=== PATIENT | male | born 1980 | race Caucasian/White ===

== ENCOUNTER 2018-01-13 13:23 | Emergency (ER) | payer OTHER ==
--- NOTE | 2018-01-13 14:01 | ED ---
General Adult HPI - General Chief complaint: Urogenital Stated complaint: poss kidney stones Time Seen by Provider: 01/13/18 13:30 Source: patient, RN notes reviewed Mode of arrival: ambulatory Limitations: no limitations - History of Present Illness Initial comments: This is a 38-year-old male who presents emergency Department stating he had some pain in his penis approximately an hour prior to arrival. Patient states she's had kidney stones in the past and recently has been having some mild flank pain he was just ignoring it. Patient came in today to be seen for this but he went into the bathroom to give us urine and he believes a stone came out when he urinated. Patient states currently he is pain-free. Patient has no abdominal pain patient has no flank pain. - Related Data Home Medications Medication Instructions Recorded Confirmed Mirtazapine [Remeron] 30 mg PO HS 01/13/18 01/13/18 Propranolol [Inderal] 10 mg PO TID 01/13/18 01/13/18 Venlafaxine HCl [Effexor XR] 150 mg PO DAILY 01/13/18 01/13/18 hydrOXYzine PAMOATE [Vistaril] 100 mg PO BID PRN 01/13/18 01/13/18 Allergies Allergy/AdvReac Type Severity Reaction Status Date / Time No Known Allergies Allergy Verified 01/13/18 14:12 Review of Systems ROS Statement: Those systems with pertinent positive or pertinent negative responses have been documented in the HPI. ROS Other: All systems not noted in ROS Statement are negative. Past Medical History Past Medical History: No Reported History Additional Past Medical History / Comment(s): kidney stones History of Any Multi-Drug Resistant Organisms: None Reported Past Surgical History: Orthopedic Surgery Additional Past Surgical History / Comment(s): Left shoulder surgery kidney stones removal Past Anesthesia/Blood Transfusion Reactions: No Reported Reaction Past Psychological History: Anxiety, Depression, PTSD Smoking Status: Current every day smoker Past Alcohol Use History: Occasional Past Drug Use History: None Reported - Past Family History Mother Family Medical History: Hyperlipidemia Sister(s) Additional Family Medical History / Comment(s): Sister has mental health history General Exam - General Exam Comments Initial Comments: GENERAL Patient is well-developed and well-nourished. Patient is in no distress. EYES Patient's pupils are equal and round. Extraocular motion is intact SKIN Unremarkable ABDOMEN Nontender NEURO The patient is alert and oriented 3 PYSCH Patient has normal interpersonal interactions. MUSCULOSKELETAL All 4 times and full range of motion Limitations: no limitations Course Vital Signs 01/13/18 13:29 Temperature 97.8 F Pulse Rate 93 Respiratory 18 Rate Blood Pressure 137/90 O2 Sat by Pulse 99 Oximetry Medical Decision Making - Medical Decision Making Patient was asymptomatic so disease state. Patient had a kidney stone in his urinal. - Lab Data Lab Results 01/13/18 Range/Units 13:35 Urine Color Yellow Urine Appearance Turbid (Clear) Urine pH 7.0 (5.0-8.0) Ur Specific [place] 1.013 (1.001-1.035) Urine Protein Trace H (Negative) Urine Glucose (UA) Negative (Negative) Urine Ketones Negative (Negative) Urine Blood Trace H (Negative) Urine Nitrite Negative (Negative) Urine Bilirubin Negative (Negative) Urine Urobilinogen 2.0 (<2.0) mg/dL Ur Leukocyte Esterase Small H (Negative) Urine WBC 1 (0-5) /hpf Amorphous Sediment Occasional H (None) /hpf Urine Mucus Occasional H (None) /hpf Disposition Clinical Impression: Kidney stone Disposition: HOME SELF-CARE Condition: Good Instructions: Kidney Stones (ED) Referrals: None,Stated [Primary Care Provider] - 1-2 days Time of Disposition: 15:12
[2018-01-13 14:32] LABS: Amorphous Sediment,Urine Occasional /hpf; Appearance,Urine Turbid (Clear); Bilirubin,Urine Negative (Negative); Blood,Urine Trace (Negative); Color,Urine Yellow; Glucose,Urine (UA) Negative (Negative); Ketones,Urine Negative (Negative); Leukocyte Esterase,Urine Small (Negative); Mucus,Urine Occasional /hpf; Nitrite,Urine Negative (Negative); Protein,Urine Trace (Negative); Specific Gravity,Urine 1.013 (1.001-1.035); WBC,Urine 1 /hpf (0-5)
[2018-01-13 15:20] VITALS: BP 130/80; PULSE 80; RESP 98; TEMP 98
== END 2018-01-13 15:19 | disposition home or self-care (01) ==
LOC: EC 13:23
DX: N20.0 Calculus of kidney (principal); F41.9 Anxiety disorder, unspecified; F32.9 Major depressive disorder, single episode, unspecified; F43.10 Post-traumatic stress disorder, unspecified; F17.200 Nicotine dependence, unspecified, uncomplicated; Z79.899 Other long term (current) drug therapy
CPT/HCPCS: 81001; 99283

== ENCOUNTER 2018-03-15 17:00 | Emergency (ER) | payer OTHER ==
[2018-03-15 17:11] VITALS: BP 119/77; PULSE 96; RESP 18; TEMP 98.7
[2018-03-15] MEDS ORDERED: KETOROLAC 30 MG/ML 1 ML VIAL IM STA (17:26)
[2018-03-15] MEDS ORDERED: ORPHENADRINE 30 MG/ML 2 ML VIAL IM STA (17:26)
--- NOTE | 2018-03-15 17:36 | ED ---
Back Pain HPI - General Chief Complaint: Back Pain/Injury Stated Complaint: back pain Time Seen by Provider: 03/15/18 17:20 Source: patient, RN notes reviewed Limitations: no limitations - History of Present Illness Initial Comments: This is a 38-year-old male who presents to the emergency department with chief complaint of low back pain. Patient states that within a three-hour time frame while at work today his back locked up on him 3 times. He describes the pain as a cramping. He currently rates his pain as 6/10. He states that the pain is localized to his low back. He denies any specific injuries or trauma. Denies any recent falls. He denies saddle paresthesias or loss of bladder or bowel function. He denies any numbness or tingling or radiation of pain down the legs. Denies urinary symptoms such as dysuria or hematuria. Denies fevers or chills. Denies IV drug use. 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 - Related Data Home Medications Medication Instructions Recorded Confirmed Propranolol [Inderal] 10 mg PO TID 01/13/18 01/13/18 Venlafaxine HCl [Effexor XR] 150 mg PO DAILY 01/13/18 01/13/18 Previous Rx's Medication Instructions Recorded Cyclobenzaprine [Flexeril] 10 mg PO TID #12 tab 03/15/18 Ibuprofen 600 mg PO Q6HR #20 tablet 03/15/18 Allergies Allergy/AdvReac Type Severity Reaction Status Date / Time No Known Allergies Allergy Verified 03/15/18 17:44 Review of Systems ROS Statement: Those systems with pertinent positive or pertinent negative responses have been documented in the HPI. ROS Other: All systems not noted in ROS Statement are negative. Past Medical History Past Medical History: No Reported History Additional Past Medical History / Comment(s): kidney stones History of Any Multi-Drug Resistant Organisms: None Reported Past Surgical History: Orthopedic Surgery Additional Past Surgical History / Comment(s): Left shoulder surgery kidney stones removal Past Anesthesia/Blood Transfusion Reactions: No Reported Reaction Past Psychological History: Anxiety, Depression, PTSD Smoking Status: Current every day smoker Past Alcohol Use History: Occasional Past Drug Use History: None Reported - Past Family History Mother Family Medical History: Hyperlipidemia Sister(s) Additional Family Medical History / Comment(s): Sister has mental health history General Exam - General Exam Comments Initial Comments: General: Awake and alert, well-developed; in no apparent distress. HEENT: Head atraumatic, normocephalic. Pupils are equal, round and reactive to light. Extraocular movements intact. Oropharynx moist without erythema or exudate. Neck: Supple. Normal ROM. No tenderness. Cardiovascular: Regular rate and rhythm. No murmurs, rubs or gallops. Chest symmetrical. Respiratory: Lungs clear to auscultation bilaterally. No wheezes, rales or rhonchi. Normal respiratory effort with no use of accessory muscles. Musculoskeletal: Normal ROM, no tenderness bilateral upper and lower extremities. Ambulating normally. Tenderness on palpation of lumbar paraspinal muscles. No vertebral or SI joint tenderness. Sensation is intact. Pedal and posterior tibial pulses are 2+ equal and palpable bilaterally. Skin: [place], warm and dry without rashes or lesions. Neurological: Alert and oriented x3. CN II-XII grossly intact. Speech is fluent and answers are appropriate. No focal neuro deficits. Psychiatric: Normal mood and affect. No overt signs of depression or anxiety noted. Limitations: no limitations Course Vital Signs 03/15/18 17:08 Temperature 98.7 F Pulse Rate 96 Respiratory 18 Rate Blood Pressure 119/77 O2 Sat by Pulse 99 Oximetry Medical Decision Making - Medical Decision Making This is a 38-year-old male who presents to the emergency department with chief complaint of low back pain. This began yesterday. Patient denies any specific injury or trauma but does state that he performs rotating motions and is constantly bending over and lifting objects at work. There is tenderness along the paraspinal muscles in the lumbar region. Patient denies saddle paresthesias , loss of bladder or bowel function, numbness or tingling or radiation of pain down the legs. Denies urinary symptoms such as dysuria or hematuria. Denies fevers or chills. Patient given Toradol and Norflex while in the emergency department. Likely suffering from a low back strain. Recommended anti- inflammatories and muscle relaxers as well as low back stretching exercises. Patient is in no acute distress and will be discharged home at this time. All questions answered. Disposition Clinical Impression: Strain of lumbar region Disposition: HOME SELF-CARE Condition: Good Instructions: Lower Back Exercises (ED), Low Back Strain (ED), Acute Low Back Pain (ED) Additional Instructions: Please take medications as prescribed. Please follow up with primary care provider within 1-2 days. Return to emergency department if symptoms should worsen or any concerns arise. Prescriptions: Cyclobenzaprine [Flexeril] 10 mg PO TID #12 tab Ibuprofen 600 mg PO Q6HR #20 tablet Is patient prescribed a controlled substance at d/c from ED?: No Referrals: None,Stated [Primary Care Provider] - 1-2 days Time of Disposition: 17:41
== END 2018-03-15 17:44 | disposition home or self-care (01) ==
LOC: EC 17:00
DX: S39.012A Strain of muscle, fascia and tendon of lower back, initial encounter (principal); F32.9 Major depressive disorder, single episode, unspecified; F41.9 Anxiety disorder, unspecified; F43.10 Post-traumatic stress disorder, unspecified; F17.200 Nicotine dependence, unspecified, uncomplicated; Z79.899 Other long term (current) drug therapy; X50.9XXA Other and unspecified overexertion or strenuous movements or postures, initial encounter; Y99.0 Civilian activity done for income or pay
CPT/HCPCS: 99283; 96372 ×2; J2360; J1885

== ENCOUNTER 2018-05-03 06:32 | Emergency (ER) | payer OTHER ==
[2018-05-03 06:42] VITALS: TEMP 98.2
[2018-05-03] MEDS ORDERED: PANTOPRAZOLE 40 MG/10 ML VIAL IVP STA (07:27)
[2018-05-03] MEDS ORDERED: SODIUM CHLORIDE 0.9% 1,000 ML IV STA (07:27)
--- NOTE | 2018-05-03 07:32 | ED ---
GI Bleed HPI - General Chief complaint: GI Bleed Stated complaint: Bloody Stools Time Seen by Provider: 05/03/18 07:00 Source: patient, RN notes reviewed Mode of arrival: ambulatory Limitations: no limitations - History of Present Illness Initial comments: This is a 38-year-old male with a benign history states he was at work today when he wiped himself after having a bowel movement he didn't actually have a bowel movement when he had bright red blood when he wiped herself this happened twice. He came here for evaluation she's had some mild upper abdominal pain no fevers chills nausea vomiting sweats. No prior history of abdominal surgeries. No known history of a family of GI problems. No red or orange colored foods over the weekend. No other complaints or modifying factors at this time MD complaint: blood on toilet paper - Related Data Home Medications Medication Instructions Recorded Confirmed Propranolol [Inderal] 10 mg PO TID 01/13/18 03/15/18 Venlafaxine HCl [Effexor XR] 150 mg PO DAILY 01/13/18 03/15/18 Previous Rx's Medication Instructions Recorded Cyclobenzaprine [Flexeril] 10 mg PO TID #12 tab 03/15/18 Ibuprofen 600 mg PO Q6HR #20 tablet 03/15/18 Ciprofloxacin HCl [Cipro] 500 mg PO Q12HR #20 tablet 05/03/18 metroNIDAZOLE [Flagyl] 375 mg PO TID #30 cap 05/03/18 Allergies Allergy/AdvReac Type Severity Reaction Status Date / Time No Known Allergies Allergy Verified 05/03/18 06:42 Review of Systems ROS Statement: Those systems with pertinent positive or pertinent negative responses have been documented in the HPI. ROS Other: All systems not noted in ROS Statement are negative. Past Medical History Past Medical History: No Reported History Additional Past Medical History / Comment(s): kidney stones History of Any Multi-Drug Resistant Organisms: None Reported Past Surgical History: Orthopedic Surgery Additional Past Surgical History / Comment(s): Left shoulder surgery kidney stones removal Past Anesthesia/Blood Transfusion Reactions: No Reported Reaction Past Psychological History: Anxiety, Depression, PTSD Smoking Status: Current every day smoker Past Alcohol Use History: Occasional Past Drug Use History: None Reported - Past Family History Mother Family Medical History: Hyperlipidemia Sister(s) Additional Family Medical History / Comment(s): Sister has mental health history General Exam - General Exam Comments Initial Comments: This a well-developed well-nourished awake alert oriented 3 male Limitations: no limitations General appearance: alert, in no apparent distress Head exam: Present: atraumatic, normocephalic, normal inspection Eye exam: Present: normal appearance, PERRL, EOMI. Absent: scleral icterus, conjunctival injection, periorbital swelling ENT exam: Present: normal exam, mucous membranes moist Neck exam: Present: normal inspection. Absent: tenderness, meningismus, lymphadenopathy Respiratory exam: Present: normal lung sounds bilaterally. Absent: respiratory distress, wheezes, rales, rhonchi, stridor Cardiovascular Exam: Present: regular rate, normal rhythm, normal heart sounds. Absent: systolic murmur, diastolic murmur, rubs, gallop, clicks GI/Abdominal exam: Present: soft, tenderness (Mild epigastric and upper abdominal tenderness no guarding rebound masses or bruits), normal bowel sounds. Absent: distended, guarding, rebound, rigid, bruit, pulsatile mass, hernia Extremities exam: Present: normal inspection, full ROM, normal capillary refill. Absent: tenderness, pedal edema, joint swelling, calf tenderness Back exam: Present: normal inspection Neurological exam: Present: alert, oriented X3, CN II-XII intact Psychiatric exam: Present: normal affect, normal mood Skin exam: Present: warm, dry, intact, normal color. Absent: rash Course Vital Signs 05/03/18 05/03/18 05/03/18 06:39 07:38 08:40 Temperature 98.2 F Pulse Rate 88 72 71 Respiratory 18 16 16 Rate Blood Pressure 135/90 139/95 122/80 O2 Sat by Pulse 98 99 99 Oximetry Medical Decision Making - Medical Decision Making I did discuss findings with the patient he does demonstrate evidence of colitis with the rectal bleeding bowel signs are stable lab work is otherwise stable he will be discharged on appropriate medication with follow-up with GI. Evidently off from work today - Lab Data Result diagrams: 05/03/18 06:49 05/03/18 06:49 Lab Results 05/03/18 05/03/18 05/03/18 Range/Units 06:48 06:49 06:49 WBC 6.4 (3.8-10.6) k/uL RBC 4.85 (4.30-5.90) m/uL Hgb 15.3 (13.0-17.5) gm/dL Hct 45.3 (39.0-53.0) % MCV 93.5 (80.0-100.0) fL MCH 31.5 (25.0-35.0) pg MCHC 33.7 (31.0-37.0) g/dL RDW 14.1 (11.5-15.5) % Plt Count 169 (150-450) k/uL Neutrophils % 52 % Lymphocytes % 34 % Monocytes % 8 % Eosinophils % 3 % Basophils % 1 % Neutrophils # 3.3 (1.3-7.7) k/uL Lymphocytes # 2.2 (1.0-4.8) k/uL Monocytes # 0.5 (0-1.0) k/uL Eosinophils # 0.2 (0-0.7) k/uL Basophils # 0.1 (0-0.2) k/uL PT (9.0-12.0) sec INR (<1.2) APTT (22.0-30.0) sec Sodium (137-145) mmol/L Potassium (3.5-5.1) mmol/L Chloride (98-107) mmol/L Carbon Dioxide (22-30) mmol/L Anion Gap mmol/L BUN (9-20) mg/dL Creatinine (0.66-1.25) mg/dL Est GFR (CKD-EPI)AfAm (>60 ml/min/1.73 sqM) Est GFR (CKD-EPI)NonAf (>60 ml/min/1.73 sqM) Glucose (74-99) mg/dL Calcium (8.4-10.2) mg/dL Magnesium (1.6-2.3) mg/dL Total Bilirubin (0.2-1.3) mg/dL AST (17-59) U/L ALT (21-72) U/L Alkaline Phosphatase (38-126) U/L Total Creatine Kinase 137 (55-170) U/L CK-MB (CK-2) 1.5 (0.0-2.4) ng/mL CK-MB (CK-2) Rel Index 1.1 Troponin I <0.012 (0.000-0.034) ng/mL Total Protein (6.3-8.2) g/dL Albumin (3.5-5.0) g/dL Lipase (23-300) U/L Stool Occult Blood (Negative) Blood Type A Positive Blood Type Confirm Blood Type Recheck CABO Indicated Antibody Screen NEGATIVE Spec Expiration Date 05/06/2018 - 234805/03/18 05/03/18 05/03/18 Range/Units 06:49 06:49 07:00 WBC (3.8-10.6) k/uL RBC (4.30-5.90) m/uL Hgb (13.0-17.5) gm/dL Hct (39.0-53.0) % MCV (80.0-100.0) fL MCH (25.0-35.0) pg MCHC (31.0-37.0) g/dL RDW (11.5-15.5) % Plt Count (150-450) k/uL Neutrophils % % Lymphocytes % % Monocytes % % Eosinophils % % Basophils % % Neutrophils # (1.3-7.7) k/uL Lymphocytes # (1.0-4.8) k/uL Monocytes # (0-1.0) k/uL Eosinophils # (0-0.7) k/uL Basophils # (0-0.2) k/uL PT 9.5 (9.0-12.0) sec INR 1.0 (<1.2) APTT 23.7 (22.0-30.0) sec Sodium 143 (137-145) mmol/L Potassium 4.3 (3.5-5.1) mmol/L Chloride 106 (98-107) mmol/L Carbon Dioxide 26 (22-30) mmol/L Anion Gap 11 mmol/L BUN 10 (9-20) mg/dL Creatinine 0.75 (0.66-1.25) mg/dL Est GFR (CKD-EPI)AfAm >90 (>60 ml/min/1.73 sqM) Est GFR (CKD-EPI)NonAf >90 (>60 ml/min/1.73 sqM) Glucose 86 (74-99) mg/dL Calcium 9.2 (8.4-10.2) mg/dL Magnesium 2.0 (1.6-2.3) mg/dL Total Bilirubin 0.2 (0.2-1.3) mg/dL AST 20 (17-59) U/L ALT 34 (21-72) U/L Alkaline Phosphatase 65 (38-126) U/L Total Creatine Kinase (55-170) U/L CK-MB (CK-2) (0.0-2.4) ng/mL CK-MB (CK-2) Rel Index Troponin I (0.000-0.034) ng/mL Total Protein 6.5 (6.3-8.2) g/dL Albumin 4.2 (3.5-5.0) g/dL Lipase 176 (23-300) U/L Stool Occult Blood (Negative) Blood Type Blood Type Confirm A Positive Blood Type Recheck Antibody Screen Spec Expiration Date 05/03/18 Range/Units 07:29 WBC (3.8-10.6) k/uL RBC (4.30-5.90) m/uL Hgb (13.0-17.5) gm/dL Hct (39.0-53.0) % MCV (80.0-100.0) fL MCH (25.0-35.0) pg MCHC (31.0-37.0) g/dL RDW (11.5-15.5) % Plt Count (150-450) k/uL Neutrophils % % Lymphocytes % % Monocytes % % Eosinophils % % Basophils % % Neutrophils # (1.3-7.7) k/uL Lymphocytes # (1.0-4.8) k/uL Monocytes # (0-1.0) k/uL Eosinophils # (0-0.7) k/uL Basophils # (0-0.2) k/uL PT (9.0-12.0) sec INR (<1.2) APTT (22.0-30.0) sec Sodium (137-145) mmol/L Potassium (3.5-5.1) mmol/L Chloride (98-107) mmol/L Carbon Dioxide (22-30) mmol/L Anion Gap mmol/L BUN (9-20) mg/dL Creatinine (0.66-1.25) mg/dL Est GFR (CKD-EPI)AfAm (>60 ml/min/1.73 sqM) Est GFR (CKD-EPI)NonAf (>60 ml/min/1.73 sqM) Glucose (74-99) mg/dL Calcium (8.4-10.2) mg/dL Magnesium (1.6-2.3) mg/dL Total Bilirubin (0.2-1.3) mg/dL AST (17-59) U/L ALT (21-72) U/L Alkaline Phosphatase (38-126) U/L Total Creatine Kinase (55-170) U/L CK-MB (CK-2) (0.0-2.4) ng/mL CK-MB (CK-2) Rel Index Troponin I (0.000-0.034) ng/mL Total Protein (6.3-8.2) g/dL Albumin (3.5-5.0) g/dL Lipase (23-300) U/L Stool Occult Blood Positive (Negative) Blood Type Blood Type Confirm Blood Type Recheck Antibody Screen Spec Expiration Date - Radiology Data Radiology results: report reviewed (I did review the imaging and report there is some evidence of colitis. Please see the complete report from details), image reviewed Disposition Clinical Impression: Colitis, Hematochezia Disposition: HOME SELF-CARE Condition: Good Instructions: Gastrointestinal Bleeding (ED), Colitis (ED) Prescriptions: Ciprofloxacin HCl [Cipro] 500 mg PO Q12HR #20 tablet metroNIDAZOLE [Flagyl] 375 mg PO TID #30 cap Is patient prescribed a controlled substance at d/c from ED?: No Referrals: None,Stated [Primary Care Provider] - 1-2 days
[2018-05-03 07:37] LABS: Basophils # (A) 0.1 k/uL (0-0.2); Basophils % (A) 1 %; Eosinophils # (A) 0.2 k/uL (0-0.7); Eosinophils % (A) 3 %; HCT 45.3 % (39.0-53.0); HGB 15.3 gm/dL (13.0-17.5); Lymphocytes # (A) 2.2 k/uL (1.0-4.8); Lymphocytes % (A) 34 %; MCH 31.5 pg (25.0-35.0); MCHC 33.7 g/dL (31.0-37.0); MCV 93.5 fL (80.0-100.0); Mean Platelet Volume 7.3; Monocytes # (A) 0.5 k/uL (0-1.0); Monocytes % (A) 8 %; Neutrophils # (A) 3.3 k/uL (1.3-7.7); Neutrophils % (A) 52 %; Platelet Count 169 k/uL (150-450); RBC 4.85 m/uL (4.30-5.90); RDW 14.1 % (11.5-15.5); WBC 6.4 k/uL (3.8-10.6)
[2018-05-03 07:39] VITALS: RESP 16
[2018-05-03 07:46] LABS: Partial Thromboplastin Time 23.7 sec (22.0-30.0); Prothrombin Time 9.5 sec (9.0-12.0)
[2018-05-03 07:50] LABS: ALT 34 U/L (21-72); AST 20 U/L (17-59); Albumin 4.2 g/dL (3.5-5.0); Alkaline Phosphatase 65 U/L (38-126); Anion Gap 11 mmol/L; Blood Urea Nitrogen 10 mg/dL (9-20); Calcium 9.2 mg/dL (8.4-10.2); Carbon Dioxide 26 mmol/L (22-30); Chloride 106 mmol/L (98-107); Glucose 86 mg/dL (74-99); Lipase 176 U/L (23-300); Potassium 4.3 mmol/L (3.5-5.1); Sodium 143 mmol/L (137-145); Total Bilirubin 0.2 mg/dL (0.2-1.3); Total Protein 6.5 g/dL (6.3-8.2)
--- NOTE | 2018-05-03 07:59 | XR ---
EXAMINATION TYPE: XR abdomen acute w cxr DATE OF EXAM: 05/03/2018 CLINICAL HISTORY: Abdominal pain and blood in stool, history of kidney stones TECHNIQUE: Single frontal view of chest is obtained. Supine and upright views of the abdomen are acq uired. COMPARISON: Chest x-ray January 04, 2016. Abdominal x-ray April 13, 2014. FINDINGS: The lungs are grossly clear without pleural effusion or pneumothorax. Cardiac silhouette size appears within normal limits. Osseous structures are intact. Overlying EKG wires are noted. Gas is noted in nondistended small bowel loops. Gas and fecal material is seen in nondistended colon . There is redemonstration of several small calculi lower pole level left kidney L3 level, estimate 6 -8 calculi all measuring 5 mm or smaller in size likely stable from prior. No pneumoperitoneum is see n. Scattered pelvic phleboliths are redemonstrated. Osseous structures are intact IMPRESSION: 1. No acute pulmonary process. 2. Overall nonspecific but likely nonobstructive bowel gas pattern. Stable left-sided nephrolithiasis .
[2018-05-03 08:01] LABS: Creatine Kinase 137 U/L (55-170)
[2018-05-03 08:14] LABS: Creatine Kinase MB 1.5 ng/mL (0.0-2.4); Troponin I <0.012 ng/mL (0.000-0.034)
--- NOTE | 2018-05-03 08:56 | CT ---
EXAMINATION TYPE: CT abdomen pelvis w con DATE OF EXAM: 05/03/2018 COMPARISON: Same-day abdominal x-ray HISTORY: Patient complains of generalized abdominal pain and bloody stools. CT DLP: 1449 mGycm, Automated Exposure Control for Dose Reduction was Utilized. CONTRAST: CT scan of the abdomen and pelvis is performed without oral but with IV Contrast, patient injected wi th 100 mL of Isovue 300. FINDINGS: LUNG BASES: Dependent atelectasis in both bases is present.. LIVER/GB: Subcentimeter low dense lesion in liver axial image 12 is too small to further characterize per presumed benign. PANCREAS: No significant abnormality is seen. SPLEEN: No significant abnormality is seen. ADRENALS: No significant abnormality is seen. KIDNEYS: Correlating with abdominal x-ray there are 5 digits 7 lower pole left renal calculi measurin g 2 mm or smaller in size near axial image 40. There are 2-3 additional upper to mid pole calculi jazmyne suring up to 3 mm in size. There are 2 right-sided renal calculi measuring up to 3 mm on long axis. T here is symmetric cortical medullary uptake and excretion from both kidneys without evidence of hydro nephrosis bilaterally. Scattered pelvic phleboliths are present. BOWEL: Normal-appearing appendix is seen from base of cecum. There are some diverticula in the sigmoi d colon. Evaluation bowel is slightly suboptimal secondary to lack of enteric contrast. There is no s uspicious small or large bowel dilatation. There is no CT evidence for acute diverticulitis. Mild wal l thickening is felt present and sigmoid colon, this favors product of poor distention, mild colitis cannot be entirely excluded. PROSTATE/SEMINAL VESICLES: No gross abnormality seen. LYMPH NODES: No greater than 1cm abdominal or pelvic lymph nodes are appreciated. OSSEOUS STRUCTURES: Multilevel facet arthropathy lower lumbar spine is present. Some disc space narro wing in the mid to lower thoracic spine is seen. OTHER: No significant additional abnormality is seen. IMPRESSION: Sigmoid colonic diverticulosis without convincing evidence for acute diverticulitis. Lopez ot exclude mild colitis in the sigmoid colon though favor product of poor distention. No bowel obstru ction is seen. No acute findings otherwise identified to account for patient's symptoms.
[2018-05-03 09:25] VITALS: BP 140/81; PULSE 75
== END 2018-05-03 09:25 | disposition home or self-care (01) ==
LOC: EC 06:32
DX: K52.9 Noninfective gastroenteritis and colitis, unspecified (principal); K92.1 Melena; F32.9 Major depressive disorder, single episode, unspecified; F41.9 Anxiety disorder, unspecified; F43.10 Post-traumatic stress disorder, unspecified; F17.200 Nicotine dependence, unspecified, uncomplicated; Z79.899 Other long term (current) drug therapy
CPT/HCPCS: 36415; 86900; 86901; 80053; 82550; 82553; 83690; 83735; 84484; 85025; 85610; 85730; 86850; 82272; 74022; 74177; 99285; 96374; 96361 ×2; C9113; Q9967

== ENCOUNTER 2024-05-21 07:50 | Emergency (ER) | payer BC, OTHER ==
[2024-05-21 07:53] VITALS: TEMP 97.8
[2024-05-21 07:57] VITALS: RESP 17
[2024-05-21] MEDS: KETOROLAC 15 MG/ML 1 ML VIAL IVP STA (08:10)
[2024-05-21] MEDS: MORPHINE SULFATE 4 MG/ML SYRINGE IVP STA (08:10)
[2024-05-21] MEDS: SODIUM CHLORIDE 0.9% 2,000 ML IV STA (08:11)
[2024-05-21 08:25] LABS: Basophils # (A) 0.1 k/uL (0-0.2); Basophils % (A) 0 %; Eosinophils # (A) 0.1 k/uL (0-0.7); Eosinophils % (A) 1 %; HCT 50.2 % (39.0-53.0); HGB 16.4 gm/dL (13.0-17.5); Lymphocytes # (A) 1.7 k/uL (1.0-4.8); Lymphocytes % (A) 15 %; MCH 31.5 pg (25.0-35.0); MCHC 32.7 g/dL (31.0-37.0); MCV 96.1 fL (80.0-100.0); Monocytes # (A) 0.6 k/uL (0-1.0); Monocytes % (A) 6 %; Neutrophils # (A) 8.5 k/uL (1.3-7.7); Neutrophils % (A) 77 %; Platelet Count 215 k/uL (150-450); RBC 5.22 m/uL (4.30-5.90); RDW 13.1 % (11.5-15.5); WBC 11.1 k/uL (3.8-10.6)
[2024-05-21 08:46] LABS: ALT 21 U/L (4-49); AST 24 U/L (17-59); African American GFR (CKD) >90 (>60 ml/min/1.73 sqM); Albumin 4.7 g/dL (3.5-5.0); Alkaline Phosphatase 81 U/L (38-126); Anion Gap 9 mmol/L; Blood Urea Nitrogen 19 mg/dL (9-20); Calcium 10.1 mg/dL (8.4-10.2); Carbon Dioxide 24 mmol/L (22-30); Chloride 106 mmol/L (98-107); Glucose 126 mg/dL (74-99); Non-African American GFR(CKD) >90 (>60 ml/min/1.73 sqM); Potassium 4.2 mmol/L (3.5-5.1); Sodium 139 mmol/L (137-145); Total Bilirubin 0.5 mg/dL (0.2-1.3); Total Protein 7.4 g/dL (6.3-8.2)
--- NOTE | 2024-05-21 08:57 | CT ---
EXAMINATION TYPE: CT abdomen pelvis wo con DATE OF EXAM: 05/21/2024 HISTORY: left flank pain CT DLP: 737.5 mGycm. Automated Exposure Control for Dose Reduction was Utilized. TECHNIQUE: CT scan of the abdomen and pelvis is performed without oral or IV contrast. COMPARISON: Prior CT May 03, 2018 FINDINGS: Within the limitations of a non-contrast study, the following observations are made. LUNG BASES: No significant abnormality. LIVER/GB: Liver remains diffusely low dense consistent with diffuse fatty infiltrative hepatocellular disease. PANCREAS: No significant abnormality is seen. SPLEEN: No significant abnormality is seen. ADRENALS: No significant abnormality is seen. KIDNEYS: There are approximate 4 left renal calculi more numerous in the lower pole. There is moderat e left-sided hydronephrosis due to obstructing 6 to 7 mm calculus in the proximal left ureter axial i mage 80 . There are 3-4 small nonobstructing right renal calculi. No hydronephrosis or obstructing ri ght ureteric calculi seen on current study. No intraluminal calculi in the bladder. BOWEL: Normal-appearing appendix is redemonstrated from base of cecum. There are few scattered coloni c diverticula. No CT evidence for acute diverticulitis. Evaluation bowel is slightly suboptimal secon stan to lack of enteric contrast. There is no suspicious small or large bowel dilatation. PROSTATE/SEMINAL VESICLES: No gross abnormality seen. LYMPH NODES: No greater than 1cm abdominal or pelvic lymph nodes are appreciated. OSSEOUS STRUCTURES: Multilevel facet arthropathy lower lumbar spine is redemonstrated. Some disc spac e narrowing in the mid to lower thoracic spine is redemonstrated. OTHER: No significant additional abnormality is seen. IMPRESSION: Bilateral nonobstructing renal calculi. There is 6 to 7 mm proximal left ureter calculus causing moderate left-sided hydronephrosis on current study.
[2024-05-21 10:02] LABS: Appearance,Urine Clear (Clear); Bilirubin,Urine Negative (Negative); Blood,Urine Large (Negative); Color,Urine Yellow; Glucose,Urine (UA) Negative (Negative); Hyaline Casts,Urine 3 /lpf (0-2); Ketones,Urine Negative (Negative); Leukocyte Esterase,Urine Negative (Negative); Mucus,Urine Rare /hpf; Nitrite,Urine Negative (Negative); Protein,Urine Trace (Negative); RBC,Urine >182 /hpf (0-5); Specific Gravity,Urine 1.018 (1.001-1.035); Squamous Epithelial Cell,Urine <1 /hpf (0-4); Urobilinogen,Urine <2.0 mg/dL (<2.0); WBC,Urine 4 /hpf (0-5)
--- NOTE | 2024-05-21 11:05 | ED ---
Back Pain HPI - General Chief Complaint: Back Pain/Injury Stated Complaint: Left side pain Time Seen by Provider: 05/21/24 07:55 Source: patient Limitations: no limitations - History of Present Illness Initial Comments: 44-year-old male presents emergency department with reported left-sided flank pain. Pain started overnight. He does have history of similar pain in the past and was concerned for kidney stones. Patient denies any blood in his urine. He denies reproducible back pain. He denies any testicular pain or swelling. No pain in his flank. He denies any fevers. He took a muscle relaxer for pain control. No constipation, diarrhea, black or bloody stools. No other alleviating, precipitating modifying factors - Related Data Home Medications Medication Instructions Recorded Confirmed Propranolol [Inderal] 10 mg PO TID 01/13/18 03/15/18 Venlafaxine HCl [Effexor XR] 150 mg PO DAILY 01/13/18 03/15/18 Previous Rx's Medication Instructions Recorded Cyclobenzaprine [Flexeril] 10 mg PO TID #12 tab 03/15/18 Ibuprofen 600 mg PO Q6HR #20 tablet 03/15/18 Ciprofloxacin HCl [Cipro] 500 mg PO Q12HR #20 tablet 05/03/18 metroNIDAZOLE [Flagyl] 375 mg PO TID #30 cap 05/03/18 Docusate [Colace] 100 mg PO BID #30 capsule 05/21/24 HYDROcodone/APAP 10-325MG [Paint Bank 1 tab PO Q4HR PRN 3 Days #18 tab 05/21/24 10-325] Ketorolac [Toradol] 10 mg PO Q8HR #15 tab 05/21/24 Ondansetron Odt [Zofran Odt] 4 mg PO Q8HR PRN #30 tab 05/21/24 Allergies Allergy/AdvReac Type Severity Reaction Status Date / Time No Known Allergies Allergy Verified 05/03/18 06:42 Review of Systems ROS Statement: Those systems with pertinent positive or pertinent negative responses have been documented in the HPI. ROS Other: All systems not noted in ROS Statement are negative. Past Medical History Past Medical History: No Reported History Additional Past Medical History / Comment(s): kidney stones History of Any Multi-Drug Resistant Organisms: None Reported Past Surgical History: Orthopedic Surgery Additional Past Surgical History / Comment(s): Left shoulder surgery kidney stones removal Past Anesthesia/Blood Transfusion Reactions: No Reported Reaction Past Psychological History: Anxiety, Depression, PTSD Smoking Status: Current every day smoker Past Alcohol Use History: Occasional Past Drug Use History: Marijuana - Past Family History Mother Family Medical History: Hyperlipidemia Sister(s) Additional Family Medical History / Comment(s): Sister has mental health history General Exam Limitations: no limitations General appearance: alert, in no apparent distress Head exam: Present: atraumatic, normocephalic, normal inspection Eye exam: Present: normal appearance, PERRL, EOMI. Absent: scleral icterus, conjunctival injection, periorbital swelling ENT exam: Present: normal exam, mucous membranes moist Neck exam: Present: normal inspection. Absent: tenderness, meningismus, lymphadenopathy Respiratory exam: Present: normal lung sounds bilaterally. Absent: respiratory distress, wheezes, rales, rhonchi, stridor Cardiovascular Exam: Present: regular rate, normal rhythm, normal heart sounds. Absent: systolic murmur, diastolic murmur, rubs, gallop, clicks GI/Abdominal exam: Present: soft, normal bowel sounds. Absent: distended, tenderness, guarding, rebound, rigid Extremities exam: Present: normal inspection, full ROM, normal capillary refill. Absent: tenderness, pedal edema, joint swelling, calf tenderness Back exam: Present: normal inspection Neurological exam: Present: alert, oriented X3, CN II-XII intact Psychiatric exam: Present: normal affect, normal mood Skin exam: Present: warm, dry, intact, normal color. Absent: rash Course Vital Signs 05/21/24 05/21/24 05/21/24 07:51 07:52 11:14 Temperature 97.8 F Pulse Rate 81 87 80 Respiratory 20 17 17 Rate Blood Pressure 133/99 146/107 119/85 O2 Sat by Pulse 100 96 98 Oximetry Medical Decision Making - Medical Decision Making Was pt. sent in by a medical professional or institution (, PA, QUALITY CONTROL MICROBIOLOGIST, urgent care, hospital, or [facility]...) When possible be specific @ -No Did you speak to anyone other than the patient for history (EMS, parent, family, police, friend...)? What history was obtained from this source @ -No Did you review nursing and triage notes (agree or disagree)? Why? @ -I reviewed and agree with nursing and triage notes Were old charts reviewed (outside hosp., previous admission, EMS record, old EKG, old radiological studies, urgent care reports/EKG's, [facility] records)? Report findings @ -No old charts were reviewed Differential Diagnosis (chest pain, altered mental status, abdominal pain women, abdominal pain men, vaginal bleeding, weakness, fever, dyspnea, syncope, headache, dizziness, GI bleed, back pain, seizure, CVA, palpatations, mental health, musculoskeletal)? @ -Differential Abdominal Pain Men: Appendicitis, cholecystitis, diverticulosis, ischemic bowel, pancreatitis, hepatitis, UTI, gastroenteritis, AAA, incarcerated hernia, bowel obstruction, constipation, inflammatory bowel, hepatitis, peptic ulcer disease, splenic infarction, perforated viscus, testicular torsion, this is not meant to be an all-inclusive list EKG interpreted by me (3pts min.). @ -Not done X-rays interpreted by me (1pt min.). @ -None done CT interpreted by me (1pt min.). @ -Yes and demonstrates left-sided ureteral stone U/S interpreted by me (1pt. min.). @ -None done What testing was considered but not performed or refused? (CT, X-rays, U/S, labs)? Why? @ -None What meds were considered but not given or refused? Why? @ -None Did you discuss the management of the patient with other professionals (professionals i.e. , PA, QUALITY CONTROL MICROBIOLOGIST, lab, RT, psych nurse, healthcare social worker, nurse wound care, teacher, parcel post officer, skilled nursing case manager)? Give summary @ -No Was smoking cessation discussed for >3mins.? @ -No Was critical care preformed (if so, how long)? @ -No Were there social determinants of health that impacted care today? How? (Homelessness, low income, unemployed, alcoholism, drug addiction, transportation, low edu. Level, literacy, decrease access to med. care, ch[facility], rehab)? @ -No Was there de-escalation of care discussed even if they declined (Discuss DNR or withdrawal of care, Hospice)? DNR status @ -No What co-morbidities impacted this encounter? (DM, HTN, Smoking, COPD, CAD, Cancer, CVA, ARF, Chemo, Hep., AIDS, mental health diagnosis, sleep apnea, morbid obesity)? @ -Kidney stones Was patient admitted / discharged? Hospital course, mention meds given and route, prescriptions, significant lab abnormalities, going to OR and other pertinent info. @ -Upon arrival patient seen and evaluated in room 15. Thorough history and physical exam was performed. Patient given pain medications and IV fluids. CT performed which demonstrates left-sided ureteral stone. Patient is reevaluated and reports that his pain is much improved. He is agreeable to going home and attempting to pass the stone on his own. He is given Flomax, nausea medications, Toradol and Paint Bank. Instructed to strain all his urine. Plenty of fluids. Follow-up with the urologist and return for any new or worsening symptoms Undiagnosed new problem with uncertain prognosis? @ -No Drug Therapy requiring intensive monitoring for toxicity (Heparin, Nitro, Insulin, Cardizem)? @ -No Were any procedures done? @ -No Diagnosis/symptom? @ -Acute left flank pain, acute ureteral stone Acute, or Chronic, or Acute on Chronic? @ -Acute Uncomplicated (without systemic symptoms) or Complicated (systemic symptoms)? @ -Complicated Side effects of treatment? @ -No Exacerbation, Progression, or Severe Exacerbation? @ -No Poses a threat to life or bodily function? How? (Chest pain, [place], [place], pneumonia, PE, COPD, DKA, ARF, appy, cholecystitis, CVA, Diverticulitis, Homicidal, Suicidal, threat to staff... and all critical care pts) @ -No - Lab Data Result diagrams: 05/21/24 08:07 05/21/24 08:07 Lab Results 05/21/24 05/21/24 05/21/24 Range/Units 08:07 08:07 09:49 WBC 11.1 H (3.8-10.6) k/uL RBC 5.22 (4.30-5.90) m/uL Hgb 16.4 (13.0-17.5) gm/dL Hct 50.2 (39.0-53.0) % MCV 96.1 (80.0-100.0) fL MCH 31.5 (25.0-35.0) pg MCHC 32.7 (31.0-37.0) g/dL RDW 13.1 (11.5-15.5) % Plt Count 215 (150-450) k/uL MPV 8.0 Neutrophils % 77 % Lymphocytes % 15 % Monocytes % 6 % Eosinophils % 1 % Basophils % 0 % Neutrophils # 8.5 H (1.3-7.7) k/uL Lymphocytes # 1.7 (1.0-4.8) k/uL Monocytes # 0.6 (0-1.0) k/uL Eosinophils # 0.1 (0-0.7) k/uL Basophils # 0.1 (0-0.2) k/uL Sodium 139 (137-145) mmol/L Potassium 4.2 (3.5-5.1) mmol/L Chloride 106 (98-107) mmol/L Carbon Dioxide 24 (22-30) mmol/L Anion Gap 9 mmol/L BUN 19 (9-20) mg/dL Creatinine 1.00 (0.66-1.25) mg/dL Est GFR (CKD-EPI)AfAm >90 (>60 ml/min/1.73 sqM) Est GFR (CKD-EPI)NonAf >90 (>60 ml/min/1.73 sqM) Glucose 126 H (74-99) mg/dL Calcium 10.1 (8.4-10.2) mg/dL Total Bilirubin 0.5 (0.2-1.3) mg/dL AST 24 (17-59) U/L ALT 21 (4-49) U/L Alkaline Phosphatase 81 (38-126) U/L Total Protein 7.4 (6.3-8.2) g/dL Albumin 4.7 (3.5-5.0) g/dL Urine Color Yellow Urine Appearance Clear (Clear) Urine pH 7.0 (5.0-8.0) Ur Specific [place] 1.018 (1.001-1.035) Urine Protein Trace H (Negative) Urine Glucose (UA) Negative (Negative) Urine Ketones Negative (Negative) Urine Blood Large H (Negative) Urine Nitrite Negative (Negative) Urine Bilirubin Negative (Negative) Urine Urobilinogen <2.0 (<2.0) mg/dL Ur Leukocyte Esterase Negative (Negative) Urine RBC >182 H (0-5) /hpf Urine WBC 4 (0-5) /hpf Ur Squamous Epith Cells <1 (0-4) /hpf Hyaline Casts 3 H (0-2) /lpf Urine Mucus Rare H (None) /hpf Disposition Clinical Impression: Ureteral stone with hydronephrosis, Left flank pain Disposition: HOME SELF-CARE Condition: Stable Instructions (If sedation given, give patient instructions): Kidney Stones (ED) Additional Instructions: Please alternate taking the Toradol with the Paint Bank every 4 hours. Use the nausea medications as needed. Follow-up with urologist and return for any new or worsening symptoms Prescriptions: Docusate [Colace] 100 mg PO BID #30 capsule HYDROcodone/APAP 10-325MG [Paint Bank 10-325] 1 tab PO Q4HR PRN 3 Days #18 tab PRN Reason: Pain Ketorolac [Toradol] 10 mg PO Q8HR #15 tab Ondansetron Odt [Zofran Odt] 4 mg PO Q8HR PRN #30 tab PRN Reason: Nausea Is patient prescribed a controlled substance at d/c from ED?: Yes When asked, does pt state using other controlled substances?: No If prescribed controlled substance>3 days was MAPS reviewed?: Prescribed <3 Days If opioid is for acute pain is fill amount 7 days or less?: Yes Referrals: None,Stated [Primary Care Provider] - 1-2 days Krunal Nolan MD [STAFF PHYSICIAN] - 1-2 days Time of Disposition: 11:13
[2024-05-21] MEDS: ACET/COD 300 MG/30 MG STARTER PACK 6 TAB BTL PO STA (11:10)
[2024-05-21 11:15] VITALS: BP 119/85; PULSE 80
== END 2024-05-21 11:18 | disposition home or self-care (01) ==
LOC: EC 07:50
DX: N13.2 Hydronephrosis with renal and ureteral calculous obstruction (principal); F17.200 Nicotine dependence, unspecified, uncomplicated
CPT/HCPCS: 36415; 80053; 81001; 85025; 74176; 99284; 96374; 96375; 96361 ×2; J2270; J1885

== ENCOUNTER 2024-07-26 20:55 | Emergency (ER) | payer BC, OTHER ==
[2024-07-26 21:02] VITALS: RESP 18
--- NOTE | 2024-07-26 21:38 | CT ---
EXAMINATION TYPE: CT abdomen pelvis wo con CT DLP: 719 mGycm, Automated exposure control for dose reduction was used. DATE OF EXAM: 07/26/2024 9:28 PM COMPARISON: 05/21/2024 CLINICAL INDICATION: Male, 44 years old with history of flank pain; Pt presents to ED for right flank . Pt states hx of kidney stones. TECHNIQUE: Axial CT abdomen pelvis wo con;Sagittal and coronal reformats were created on a separate workstation. Contrast used: mL of , (none if empty) Oral contrast used: without Oral Contrast (none if empty) FINDINGS: LOWER CHEST: Unremarkable ABDOMEN LIVER: Unremarkable GALLBLADDER AND BILE DUCTS: Unremarkable. PANCREAS: Unremarkable. SPLEEN: Unremarkable. ADRENAL GLANDS: Unremarkable. KIDNEYS AND URETERS: Mild right hydronephrosis secondary obstructing 5 mm calculus in the proximal ri ght ureter. Additional nonobstructing calculi on the right measuring up to 7 mm and on the left 12 mm . No left hydronephrosis. PELVIS BLADDER: Unremarkable REPRODUCTIVE: Unremarkable. ABDOMEN & PELVIS STOMACH AND BOWEL: No evidence of bowel obstruction. Appendix is normal. Scattered colonic diverticul a. PERITONEUM/RETROPERITONEUM: No evidence of pneumoperitoneum or free fluid. VASCULATURE: No evidence of aortic aneurysm. MUSCULOSKELETAL: No acute osseous abnormalities LYMPH NODES: No gross evidence for lymphadenopathy. SOFT TISSUE/ABDOMINAL WALL: Unremarkable IMPRESSION: Mild right hydronephrosis secondary obstructing 5 mm calculus in the proximal right ureter. Additiona l nonobstructing calculi on the right measuring up to 12 mm.
--- NOTE | 2024-07-26 21:43 | ED ---
Abdominal Pain HPI - General Source: patient, RN notes reviewed Mode of arrival: ambulatory Limitations: no limitations <Arely Abrams - Last Filed: 07/26/24 21:42> - General Source: patient, RN notes reviewed <Zia Landaverde - Last Filed: 07/27/24 00:42> - General Chief Complaint: Abdominal Pain Stated Complaint: Abd/Back Pain Time Seen by Provider: 07/26/24 21:14 - History of Present Illness Initial Comments: Quick [id number] male who presents emergency department with right flank pain with radiation to his right abdomen for the past day. Patient states that he has been having dysuria and decrease in urinary frequency. Patient does have a history of kidney stones. Endorses nausea and vomiting, denies fevers and chills. (Arely Abrams) Patient is a 44-year-old male who presents emergency department for right-sided flank pain. Has a history of kidney stones and believes he has a kidney stone. Endorses mild nausea with it. No vomiting. Does endorse darker urine. Pain radiates from the flank towards his groin. No other significant complaints at this time. Presents for further evaluation. Originally seen as a quick note. (Zia Landaverde) - Related Data Home Medications Medication Instructions Recorded Confirmed Propranolol [Inderal] 10 mg PO TID 01/13/18 03/15/18 Venlafaxine HCl [Effexor XR] 150 mg PO DAILY 01/13/18 03/15/18 Previous Rx's Medication Instructions Recorded Cyclobenzaprine [Flexeril] 10 mg PO TID #12 tab 03/15/18 Ibuprofen 600 mg PO Q6HR #20 tablet 03/15/18 Ciprofloxacin HCl [Cipro] 500 mg PO Q12HR #20 tablet 05/03/18 metroNIDAZOLE [Flagyl] 375 mg PO TID #30 cap 05/03/18 Docusate [Colace] 100 mg PO BID #30 capsule 05/21/24 HYDROcodone/APAP 10-325MG [[place] 1 tab PO Q4HR PRN 3 Days #18 tab 05/21/24 10-325] Ketorolac [Toradol] 10 mg PO Q8HR #15 tab 05/21/24 Ondansetron Odt [Zofran Odt] 4 mg PO Q8HR PRN #30 tab 05/21/24 Allergies Allergy/AdvReac Type Severity Reaction Status Date / Time No Known Allergies Allergy Verified 07/26/24 21:02 Review of Systems ROS Other: All systems not noted in ROS Statement are negative. <Arely Abrams - Last Filed: 07/26/24 21:42> ROS Other: All systems not noted in ROS Statement are negative. <Zia Landaverde - Last Filed: 07/27/24 00:42> ROS Statement: Those systems with pertinent positive or pertinent negative responses have been documented in the HPI. Review of Systems: CONST: Denies fever EYES: Denies blurry vision ENT: Denies nasal congestion C/V: Denies Chest pain RESP: Denies shortness of breath GI: Endorses right flank pain : Denies dysuria SKIN: Denies rash. MSK: Denies joint pain. NEURO: Denies headache (Zia Landaverde) Past Medical History Past Medical History: No Reported History Additional Past Medical History / Comment(s): kidney stones History of Any Multi-Drug Resistant Organisms: None Reported Past Surgical History: Orthopedic Surgery Additional Past Surgical History / Comment(s): Left shoulder surgery kidney stones removal Past Anesthesia/Blood Transfusion Reactions: No Reported Reaction Past Psychological History: Anxiety, Depression, PTSD Smoking Status: Current every day smoker Past Alcohol Use History: Occasional Past Drug Use History: Marijuana - Past Family History Mother Family Medical History: Hyperlipidemia Sister(s) Additional Family Medical History / Comment(s): Sister has mental health history <Arely Abrams - Last Filed: 07/26/24 21:42> General Exam Limitations: no limitations <Arely Abrams - Last Filed: 07/26/24 21:42> <Zia Landaverde - Last Filed: 07/27/24 00:42> - General Exam Comments Initial Comments: Visual Physical Exam Vital signs reviewed General: Well-appearing, nontoxic, no acute distress. Head: Normocephalic, atraumatic Eyes: PERRLA, EOMI ENT: Airway patent Chest: Nonlabored breathing Skin: No visual rash, normal skin tone Neuro: Alert and oriented 3 Musculoskeletal: No gross abnormalities (Arely Abrams) General: Appears in moderate distress secondary to pain. HEAD: Normal with no signs of head trauma. EYES: PERRLA, EOMI, conjunctiva normal, no discharge. ENT: Hearing grossly intact, normal oropharynx. RESPIRATORY: Clear breath sounds bilaterally. No wheezes, rales, or rhonchi. C/V: Regular rate and rhythm. S1 and S2 auscultated, no edema, peripheral pulses 2+ and intact throughout ABD: Abdomen soft, nondistended. Tender palpation over the right flank region. No guarding or rebound tenderness. No peritoneal signs. EXT: Normal range of motion, no obvious deformity SKIN: No rashes or lesions observed on exposed skin. NEURO: Alert and oriented x 4. (Zia Landaverde) Course Vital Signs 07/26/24 20:59 Temperature 97.7 F Pulse Rate 76 Respiratory 18 Rate Blood Pressure 133/90 O2 Sat by Pulse 98 Oximetry Medical Decision Making <Arely bArams - Last Filed: 07/26/24 21:42> - Lab Data Result diagrams: 07/26/24 21:42 07/26/24 21:42 <Zia Landaverde - Last Filed: 07/27/24 00:42> - Medical Decision Making I completed the quick note portion of this chart signed Arely Abrams PA-C (Arely Abrams) Was pt. sent in by a medical professional or institution ([facility], ED TEACHER, urgent care, hospital, or fpc...) When possible be specific @ -No Did you speak to anyone other than the patient for history (EMS, parent, family, police, friend...)? What history was obtained from this source @ -No Did you review nursing and triage notes (agree or disagree)? Why? @ -I reviewed and agree with nursing and triage notes Were old charts reviewed (outside hosp., previous admission, EMS record, old EKG, old radiological studies, urgent care reports/EKG's, fpc records)? Report findings @ -No old charts were reviewed Differential Diagnosis (chest pain, altered mental status, abdominal pain women, abdominal pain men, vaginal bleeding, weakness, fever, dyspnea, syncope, headache, dizziness, GI bleed, back pain, seizure, CVA, palpatations, mental health, musculoskeletal)? @ -Differential Abdominal Pain Men: Appendicitis, cholecystitis, diverticulosis, ischemic bowel, pancreatitis, hepatitis, UTI, gastroenteritis, AAA, incarcerated hernia, bowel obstruction, constipation, inflammatory bowel, hepatitis, peptic ulcer disease, splenic infarction, perforated viscus, testicular torsion, this is not meant to be an all-inclusive list EKG interpreted by me (3pts min.). @ -None done X-rays interpreted by me (1pt min.). @ -None done CT interpreted by me (1pt min.). @ -CT abdomen pelvis without contrast reveals right sided 5 mm ureteral lithiasis in the proximal right ureter. Nonobstructing calculi also present. There is mild hydronephrosis. U/S interpreted by me (1pt. min.). @ -None done What testing was considered but not performed or refused? (CT, X-rays, U/S, labs)? Why? @ -None What meds were considered but not given or refused? Why? @ -None Did you discuss the management of the patient with other professionals (professionals i.e. , PA, ED TEACHER, lab, RT, psych nurse, manager social, sugar cane planting equipment operator, teacher, coastal/harbor defense officer, caser in)? Give summary @ -No Was smoking cessation discussed for >3mins.? @ -No Was critical care preformed (if so, how long)? @ -No Were there social determinants of health that impacted care today? How? (Homelessness, low income, unemployed, alcoholism, drug addiction, transportation, low edu. Level, literacy, decrease access to med. care, custodial, rehab)? @ -No Was there de-escalation of care discussed even if they declined (Discuss DNR or withdrawal of care, Hospice)? DNR status @ -No What co-morbidities impacted this encounter? (DM, HTN, Smoking, COPD, CAD, Cancer, CVA, ARF, Chemo, Hep., AIDS, mental health diagnosis, sleep apnea, morbid obesity)? @ -None Was patient admitted / discharged? Hospital course, mention meds given and route, prescriptions, significant lab abnormalities, going to OR and other pertinent info. @ -Presents for abdominal pain. Suspect kidney stone. Workup completed prior to me evaluating the patient as he was started as a quick note. Vital signs are within acceptable limits. Patient's workup reveals a slight leukocytosis of 12 which is likely reactive. Urinalysis remarkable for hematuria with no obvious signs of infection. CT shows an obstructing 5 mm kidney stone on the right with mild hydronephrosis. On reevaluation, I updated the patient. Patient will be symptomatically treated with analgesia medications. Patient will be reevaluated. He was in agreement this plan. On reevaluation, patient is feeling improved. He will be discharged home with analgesia medications, starter pack of Zofran. He already has Flomax at home. He will be given a strainer. Strict return precautions. Patient has a urologist in [place] which I instructed him to follow-up with. He was in agreement this plan. I instructed the patient to follow up with their PCP in the next 1-3 days.I explained that the patient should return to the emergency department if they experience any worsening symptoms. Strict return precautions were discussed with the patient. The patient expressed understanding of these instructions. I answered all questions that the patient had. The patient was discharged home in good condition with their prescriptions and follow up information. Undiagnosed new problem with uncertain prognosis? @ -No Drug Therapy requiring intensive monitoring for toxicity (Heparin, Nitro, Insulin, Cardizem)? @ -No Were any procedures done? @ -No Diagnosis/symptom? @ -Ureteral lithiasis Acute, or Chronic, or Acute on Chronic? @ -Acute Uncomplicated (without systemic symptoms) or Complicated (systemic symptoms)? @ -Complicated Side effects of treatment? @ -No Exacerbation, Progression, or Severe Exacerbation? @ -No Poses a threat to life or bodily function? How? (Chest pain, USA, CA, pneumonia, PE, COPD, DKA, ARF, appy, cholecystitis, CVA, Diverticulitis, Homicidal, Suicidal, threat to staff... and all critical care pts) @ -Unlikely (Zia Landaverde) - Lab Data Lab Results 07/26/24 07/26/24 07/26/24 Range/Units 21:42 21:42 21:47 WBC 12.0 H (3.8-10.6) k/uL RBC 5.10 (4.30-5.90) m/uL Hgb 15.9 (13.0-17.5) gm/dL Hct 48.5 (39.0-53.0) % MCV 95.0 (80.0-100.0) fL MCH 31.1 (25.0-35.0) pg MCHC 32.8 (31.0-37.0) g/dL RDW 13.1 (11.5-15.5) % Plt Count 217 (150-450) k/uL MPV 7.6 Neutrophils % 69 % Lymphocytes % 20 % Monocytes % 6 % Eosinophils % 1 % Basophils % 1 % Neutrophils # 8.2 H (1.3-7.7) k/uL Lymphocytes # 2.3 (1.0-4.8) k/uL Monocytes # 0.7 (0-1.0) k/uL Eosinophils # 0.2 (0-0.7) k/uL Basophils # 0.1 (0-0.2) k/uL Sodium 137 (137-145) mmol/L Potassium 4.1 (3.5-5.1) mmol/L Chloride 104 (98-107) mmol/L Carbon Dioxide 25 (22-30) mmol/L Anion Gap 8 mmol/L BUN 19 (9-20) mg/dL Creatinine 1.13 (0.66-1.25) mg/dL Est GFR (CKD-EPI)AfAm >90 (>60 ml/min/1.73 sqM) Est GFR (CKD-EPI)NonAf 79 (>60 ml/min/1.73 sqM) Glucose 109 H (74-99) mg/dL Calcium 9.7 (8.4-10.2) mg/dL Total Bilirubin 0.5 (0.2-1.3) mg/dL AST 27 (17-59) U/L ALT 23 (4-49) U/L Alkaline Phosphatase 79 (38-126) U/L Total Protein 7.3 (6.3-8.2) g/dL Albumin 4.6 (3.5-5.0) g/dL Lipase 121 (23-300) U/L Urine Color Light Yellow Urine Appearance Clear (Clear) Urine pH 6.5 (5.0-8.0) Ur Specific [place] 1.020 (1.001-1.035) Urine Protein Trace H (Negative) Urine Glucose (UA) Negative (Negative) Urine Ketones Negative (Negative) Urine Blood Large H (Negative) Urine Nitrite Negative (Negative) Urine Bilirubin Negative (Negative) Urine Urobilinogen <2.0 (<2.0) mg/dL Ur Leukocyte Esterase Negative (Negative) Urine RBC 133 H (0-5) /hpf Urine WBC 7 H (0-5) /hpf Amorphous Sediment Rare H (None) /hpf Hyaline Casts 6 H (0-2) /lpf Urine Mucus Rare H (None) /hpf Disposition <Arely Abrams - Last Filed: 07/26/24 21:42> Is patient prescribed a controlled substance at d/c from ED?: No Time of Disposition: 00:41 <Zia Landaverde - Last Filed: 07/27/24 00:42> Clinical Impression: Ureterolithiasis Disposition: HOME SELF-CARE Condition: Good Instructions (If sedation given, give patient instructions): Kidney Stones (ED) Referrals: Nonstaff,Physician [Primary Care Provider] - 1-2 days Bienvenido Walton MD [STAFF PHYSICIAN] - 1-2 days
[2024-07-26 21:54] LABS: Basophils # (A) 0.1 k/uL (0-0.2); Basophils % (A) 1 %; Eosinophils # (A) 0.2 k/uL (0-0.7); Eosinophils % (A) 1 %; HCT 48.5 % (39.0-53.0); HGB 15.9 gm/dL (13.0-17.5); Lymphocytes # (A) 2.3 k/uL (1.0-4.8); Lymphocytes % (A) 20 %; MCH 31.1 pg (25.0-35.0); MCHC 32.8 g/dL (31.0-37.0); Mean Platelet Volume 7.6; Monocytes # (A) 0.7 k/uL (0-1.0); Monocytes % (A) 6 %; Neutrophils # (A) 8.2 k/uL (1.3-7.7); Neutrophils % (A) 69 %; Platelet Count 217 k/uL (150-450); RDW 13.1 % (11.5-15.5)
[2024-07-26 22:02] LABS: Amorphous Sediment,Urine Rare /hpf; Appearance,Urine Clear (Clear); Bilirubin,Urine Negative (Negative); Blood,Urine Large (Negative); Color,Urine Light Yellow; Glucose,Urine (UA) Negative (Negative); Hyaline Casts,Urine 6 /lpf (0-2); Ketones,Urine Negative (Negative); Leukocyte Esterase,Urine Negative (Negative); Mucus,Urine Rare /hpf; Nitrite,Urine Negative (Negative); PH, Urine 6.5 (5.0-8.0); Protein,Urine Trace (Negative); RBC,Urine 133 /hpf (0-5); Urobilinogen,Urine <2.0 mg/dL (<2.0); WBC,Urine 7 /hpf (0-5)
[2024-07-26 22:05] LABS: Potassium 4.1 mmol/L (3.5-5.1)
[2024-07-26 22:07] LABS: AST 27 U/L (17-59); African American GFR (CKD) >90 (>60 ml/min/1.73 sqM); Albumin 4.6 g/dL (3.5-5.0); Alkaline Phosphatase 79 U/L (38-126); Blood Urea Nitrogen 19 mg/dL (9-20); Calcium 9.7 mg/dL (8.4-10.2); Carbon Dioxide 25 mmol/L (22-30); Chloride 104 mmol/L (98-107); Glucose 109 mg/dL (74-99); Lipase 121 U/L (23-300); Non-African American GFR(CKD) 79 (>60 ml/min/1.73 sqM); Total Bilirubin 0.5 mg/dL (0.2-1.3); Total Protein 7.3 g/dL (6.3-8.2)
[2024-07-26 22:08] LABS: ALT 23 U/L (4-49); Anion Gap 8 mmol/L; Sodium 137 mmol/L (137-145)
[2024-07-26] MEDS: ONDANSETRON 4 MG/2 ML VIAL IVP STA (23:40)
[2024-07-26] MEDS: MORPHINE SULFATE 4 MG/ML SYRINGE IVP STA (23:41)
[2024-07-26] MEDS: KETOROLAC 15 MG/ML 1 ML VIAL IVP STA (23:42)
[2024-07-26] MEDS: SODIUM CHLORIDE 0.9% 1,000 ML IV STA (23:42)
[2024-07-27] MEDS: MORPHINE SULFATE 4 MG/ML SYRINGE IVP STA (01:04)
[2024-07-27] MEDS: ONDANSETRON 4 MG ODT STARTER PACK 2 TAB BTL PO STA (01:07)
[2024-07-27] MEDS: ACET/COD 300 MG/30 MG STARTER PACK 6 TAB BTL PO STA (01:07)
[2024-07-27 01:13] VITALS: BP 136/88; PULSE 79; TEMP 98
== END 2024-07-27 02:15 | disposition home or self-care (01) ==
LOC: EC 20:55
DX: N13.2 Hydronephrosis with renal and ureteral calculous obstruction (principal); F17.200 Nicotine dependence, unspecified, uncomplicated
CPT/HCPCS: 36415; 74176; 80053; 81001; 83690; 85025; 96361; 96374; 96375; 96376; 99284